=== PATIENT | male | born 1975 | race African-American/Black ===

== ENCOUNTER 2018-12-22 19:37 | Emergency (ER) | payer BC, OTHER ==
[2018-12-22 19:59] VITALS: BP 170/98
--- NOTE | 2018-12-22 20:13 | ED ---
GI/ HPI - HPI Summary HPI Summary: 43-year-old male presents with hematuria today. He states that it started this morning and has been better. No clots. states only trace amount of blood now. denies any recent illness. No flank pain. no abdominal pain. He denies any nausea and vomiting. No chance has an STD. no history of UTIs. Is not on blood thinners. No trauma. - History of Current Complaint Chief Complaint: UCGI Time Seen by Provider: 12/22/18 19:58 Stated Complaint: POSSIBLE UTI Pain Intensity: 0 - Allergy/Home Medications Allergies/Adverse Reactions: Allergies Allergy/AdvReac Type Severity Reaction Status Date / Time No Known Allergies Allergy Verified 12/22/18 19:55 PMH/Surg Hx/FS Hx/Imm Hx Endocrine/Hematology History: Denies: Hx Diabetes, Hx Thyroid Disease Cardiovascular History: Denies: Hx Hypertension Respiratory History: Denies: Hx Asthma, Hx Chronic Obstructive Pulmonary Disease (COPD) GI History: Denies: Hx Ulcer Infectious Disease History: No Infectious Disease History: Denies: Hx Clostridium Difficile, Hx Hepatitis, Hx Human Immunodeficiency Virus (HIV), Hx of Known/Suspected MRSA, Hx Shingles, Hx Tuberculosis, Hx Known/ Suspected VRE, Hx Known/Suspected VRSA, History Other Infectious Disease, Traveled Outside the [place] in Last 30 Days - Family History Known Family History: Positive: Other - no urologic conditions - Social History Alcohol Use: Occasionally Substance Use Type: Reports: None Smoking Status (MU): Never Smoked Tobacco Review of Systems Negative: Fever Negative: Chest Pain Positive: hematuria. Negative: flank pain All Other Systems Reviewed And Are Negative: Yes Physical Exam Triage Information Reviewed: Yes Vital Signs On Initial Exam: Initial Vitals Temp Pulse Resp BP Pulse Ox 99.0 F 79 18 186/122 98 12/22/18 19:52 12/22/18 19:52 12/22/18 19:52 12/22/18 19:52 12/22/18 19:52 Vital Signs Reviewed: Yes Appearance: Positive: Well-Appearing Skin: Positive: Warm, Dry Head/Face: Positive: Normal Head/Face Inspection Eyes: Positive: Normal, EOMI, ASHLEY, Conjunctiva Clear ENT: Positive: Normal ENT inspection, Pharynx normal, TMs normal Respiratory/Lung Sounds: Positive: Clear to Auscultation, Breath Sounds Present Cardiovascular: Positive: Normal, RRR Abdomen Description: Positive: Nontender, Soft. Negative: CVA Tenderness (R), CVA Tenderness (L) Bowel Sounds: Positive: Present Musculoskeletal: Positive: Normal Neurological: Positive: Normal Psychiatric: Positive: Normal Diagnostics - Vital Signs Vital Signs Temp Pulse Resp BP Pulse Ox 12/22/18 19:59 170/98 12/22/18 19:52 99.0 F 79 18 186/122 98 - Laboratory Lab Results: Lab Results 12/22/18 Range/Units 20:02 POC Urine Color Dark yellow POC Urine Clarity Clear POC Urine pH 5.5 (5-9) POC Ur Specif [place] 1.020 (1.010-1.030) POC Urine Protein 2+ A (Negative) POC Ur Glucose (UA) Negative (Negative) POC Urine Ketones 1+ A (Negative) POC Urine Blood 2+ A (Negative) POC Urine Nitrite Negative (Negative) POC Urine Bilirubin Negative (Negative) POC Urine Urobilinogen 1.0 (Negative) POC U Leukocyte Esteras Negative (Negative) Lab Statement: Any lab studies that have been ordered have been reviewed, and results considered in the medical decision making process. GIGU Course/Dx - Course Course Of Treatment: 43-year-old male presents with hematuria today. He states that it started this morning and has been better. No clots. states only trace amount of blood now. denies any recent illness. No flank pain. no abdominal pain. He denies any nausea and vomiting. No chance has an STD. no history of UTIs. Is not on blood thinners. No trauma. On exam nontender abdomen nontender flanks. Urine just shows hematuria. Will have follow-up with urology. blood pressure is elevated at this visit so gave diet suggestions. will have follow up with primary about blood pressure. Patient understands agrees with plan. - Diagnoses Differential Diagnoses - Male: STD, Ureteral Calculi, Urinary Tract Infection Provider Diagnoses: Hematuria, Elevated blood pressure reading Discharge - Sign-Out/Discharge Documenting (check all that apply): Patient Departure All imaging exams completed and their final reports reviewed: No Studies - Discharge Plan Condition: Good Disposition: HOME Patient Education Materials: Hematuria (ED), DASH Eating Plan (ED) Referrals: [facility] [place] [facility]IAN REFERRAL [Outside] Jose Antonio Duran MD [Medical Doctor] - Additional Instructions: limit salt intake Establish care with primary to follow up about blood pressure drink plenty of fluids Follow up with urology Return to ED if develop flank pain, fever, or passing clots or any new or worsening symptoms - Billing Disposition and Condition Condition: GOOD Disposition: Home - Attestation Statements Provider Attestation: I did not examin this patient. AI was available for consult.
== END 2018-12-22 20:25 | disposition home or self-care (01) ==
LOC: UCEAST 19:37
DX: R31.9 Hematuria, unspecified (principal); R03.0 Elevated blood-pressure reading, without diagnosis of hypertension
CPT/HCPCS: 81003; 99201; G0463

== ENCOUNTER 2019-06-20 08:06 | Emergency (ER) | payer BC, OTHER ==
[2019-06-20] MEDS ORDERED: Ibuprofen TAB* 600 MG PO ONE (08:24)
[2019-06-20] MEDS ORDERED: cloNIDine TAB* 0.1 MG PO ONE (10:25)
[2019-06-20 11:09] VITALS: BP 175/95
--- NOTE | 2019-06-20 12:07 | ED ---
Lower Extremity - HPI Summary HPI Summary: This patient is an otherwise healthy 43-year-old male presenting to the ED with a twist to his right lower extremity including the ankle. He is endorsing pain to the right ankle and right lower extremity. Denies any numbness and tingling. Denies any color temperature changes. Patient has been unable to ambulate. Pain is currently rated at 8/10, worse with bearing weight and better with rest. He has not taken any medication or used ice prior to arrival. - History of Current Complaint Chief Complaint: EDExtremityLower Stated Complaint: RT LEG INJURY PER PT Time Seen by Provider: 06/20/19 08:19 Hx Obtained From: Patient Onset of Pain: Hours Onset/Duration: Hours Severity Initially: Moderate Severity Currently: Moderate Pain Intensity: 3 Pain Scale Used: 0-10 Numeric Timing: Constant Location: Is Discrete @ - right lower extremity and right ankle Associated Signs And Symptoms: Negative: Swelling, Redness, Bruising Aggravating Factor(s): Standing, Ambulation Alleviating Factor(s): Rest Able to Bear Weight: No - Risk Factors Gout Risk Factors: Negative DVT Risk Factors: Negative Septic Arthritis Risk Factor: Negative - Allergies/Home Medications Allergies/Adverse Reactions: Allergies Allergy/AdvReac Type Severity Reaction Status Date / Time No Known Allergies Allergy Verified 06/20/19 08:13 PMH/Surg Hx/FS Hx/Imm Hx Previously Healthy: Yes Endocrine/Hematology History: Denies: Hx Diabetes, Hx Thyroid Disease Cardiovascular History: Denies: Hx Hypertension Respiratory History: Denies: Hx Asthma, Hx Chronic Obstructive Pulmonary Disease (COPD) GI History: Denies: Hx Ulcer - Immunization History Hx Pertussis Vaccination: No Immunizations Up to Date: Yes Infectious Disease History: No Infectious Disease History: Denies: Hx Clostridium Difficile, Hx Hepatitis, Hx Human Immunodeficiency Virus (HIV), Hx of Known/Suspected MRSA, Hx Shingles, Hx Tuberculosis, Hx Known/ Suspected VRE, Hx Known/Suspected VRSA, History Other Infectious Disease, Traveled Outside the [place] in Last 30 Days - Family History Known Family History: Positive: Other - no urologic conditions - Social History Occupation: Employed Full-time Lives: With Family Alcohol Use: Occasionally Hx Substance Use: No Substance Use Type: Reports: None Hx Tobacco Use: No Smoking Status (MU): Never Smoked Tobacco Review of Systems Negative: Fever, Chills, Fatigue, Skin Diaphoresis Negative: Palpitations, Chest Pain Negative: Shortness Of Breath, Cough Genitourinary: Negative Positive: no symptoms reported, see HPI Positive: Arthralgia, Myalgia Skin: Negative Neurological: Negative All Other Systems Reviewed And Are Negative: Yes Physical Exam Triage Information Reviewed: Yes Vital Signs On Initial Exam: Initial Vitals Temp Pulse Resp BP Pulse Ox 100.9 F 80 18 217/117 98 06/20/19 08:09 06/20/19 08:09 06/20/19 08:09 06/20/19 08:09 06/20/19 08:09 Vital Signs Reviewed: Yes Appearance: Positive: Well-Appearing, Well-Nourished Skin: Positive: Warm, Skin Color Reflects Adequate Perfusion Head/Face: Positive: Normal Head/Face Inspection Eyes: Positive: EOMI, ASHLEY, Conjunctiva Clear Neck: Positive: Supple, No Lymphadenopathy Respiratory/Lung Sounds: Positive: Clear to Auscultation, Breath Sounds Present Cardiovascular: Positive: RRR, Pulses are Symmetrical in both Upper and Lower Extremities Musculoskeletal: Positive: Pain @ - right lower extremity involving the ankle without pain to the dorsum of the foot Neurological: Positive: Sensory/Motor Intact, Alert, Oriented to Person Place, Time, Speech Normal Psychiatric: Positive: Affect/Mood Appropriate Procedures - Sedation Patient Received Moderate/Deep Sedation with Procedure: No Diagnostics - Vital Signs Vital Signs Temp Pulse Resp BP Pulse Ox 06/20/19 11:08 98.6 F 75 16 175/95 96 06/20/19 10:33 160/108 06/20/19 10:20 186/104 06/20/19 08:49 184/117 06/20/19 08:09 100.9 F 80 18 217/117 98 - Laboratory Lab Statement: Any lab studies that have been ordered have been reviewed, and results considered in the medical decision making process. Lower Extremity Course/Dx - Course Course Of Treatment: On arrival to the ED, the patient appears well, nondiaphoretic with no pain distress. He is interesting pain today right ankle and right lower extremity. Plantar flexion and dorsi flexion intact. No swelling or ecchymosis noted. No deformity noted. He is given ibuprofen and ice to the area. X-ray of the lower extremity and ankle obtained which shows no acute findings. Discussed with the patient who requests out of work note as well as crutches. He is diagnosed with ankle sprain. Pt has no hx of HTN, however arrives with high BP at 217/117, rechecked after clonidine given 175/ 95. Pt encouraged to follow up with PCP regarding HTN. - Diagnoses Differential Diagnosis/HQI/PQRI: Positive: Sprain, Strain Provider Diagnoses: HTN (hypertension), Ankle sprain Discharge ED - Sign-Out/Discharge Documenting (check all that apply): Patient Departure - Discharge Plan Condition: Stable Disposition: HOME Patient Education Materials: Ankle Sprain (ED) Forms: *Work Release Referrals: No Primary Care Phys,NOPCP [Primary Care Provider] - Additional Instructions: You were seen in the Emergency Department for ankle sprain If you develop any worsening or changing symptoms, please return to the ED Please follow up with your primary care provider in the next 2-3 days if symptoms do not improve Ibuprofen 600mg three times daily for pain and inflammation Crutches as needed for ambulation Out of work x 4 days Keep ankle splint applied x 1 week for support It was a pleasure taking care of you today - Billing Disposition and Condition Condition: STABLE Disposition: Home - Attestation Statements Provider Attestation: I was available for consultation for this patient. I did not evaluate the patient or participate in any medical decision making or disposition decisions unless I am specifically named in the chart as having consulted on the patient. If I have consulted on the patient, please see my own ED note on the patient encounter. Eddie Queen MD
== END 2019-06-20 10:19 | disposition home or self-care (01) ==
LOC: ED 08:06
DX: S93.401A Sprain of unspecified ligament of right ankle, initial encounter (principal); I10 Essential (primary) hypertension; X50.0XXA Overexertion from strenuous movement or load, initial encounter; Y93.9 Activity, unspecified; Y92.9 Unspecified place or not applicable
CPT/HCPCS: 99282; A9270-GY